=== PATIENT | female | born 1940 | race Caucasian/White ===

== ENCOUNTER 2017-03-25 13:06 | Emergency (ER) | payer OTHER ==
[~2017-03-25] VITALS: Ht 152.4 cm; Wt 66.7 kg
[~2017-03-25 13:06] MED LIST: ALEN70TA39 PO; ATOR40TA PO; CALC500T21 PO; DICY10CA13 PO; GABA100C4 PO; LASI20TA PO; LISI-363 PO; LORTA5 PO; MELO15TA2 PO; OMEP40CA2 PO; PRED20 PO; VITA-8 PO
[2017-03-25 13:14] VITALS: BP 175/84; PULSE 72; RESP 17; TEMP 97.7; O2SAT 97
[2017-03-25] MEDS ORDERED: DICY10CA12 PO (13:58)
[2017-03-25] MEDS ORDERED: OMEP40CA2 PO (13:58)
[2017-03-25] MEDS ORDERED: FURO20TA PO (13:58)
[2017-03-25] MEDS ORDERED: TH C600T4 PO (13:58)
[2017-03-25] MEDS ORDERED: ASCO100016 PO (13:58)
[2017-03-25] MEDS ORDERED: METH8TAB3 PO (13:58)
[2017-03-25] MEDS ORDERED: ATOR40TA16 PO (13:58)
[2017-03-25] MEDS ORDERED: MELO-1 PO (13:58)
[2017-03-25] MEDS ORDERED: IBUP800T23 PO (13:58)
[2017-03-25] MEDS ORDERED: BACL10TA PO (13:58)
[2017-03-25] MEDS ORDERED: KETOROLAC TROMETHAMINE 60 MG/2 ML (IM) VIAL IM ONE (14:15)
--- NOTE | 2017-03-25 14:21 | PD ---
HPI Chief Complaint: Musculoskeletal Complaint Time Seen by Provider: 13:50 Travel History International Travel<30 days: No Contact w/Intl Traveler<30days: No Traveled to known affect area: No History of Present Illness HPI 76-year-old female presents emergency department for evaluation of left low back pain radiating down into the leg. Patient has history of sciatica. She reports symptom onset proximal by 7 days ago. She was seen by her PCP who put her on prednisone and baclofen. She reports she's had little relief with his medicines. She denies fever or chills, incontinence, numbness/weakness/ tingling of the extremity. Patient reports she has a perception for Percocet at the pharmacy which she has not picked up. Pain scale 6/10. No aggravating or alleviating factors. PFSH Past Medical History Arthritis: Yes (OSTEO/LOWER BACK/ HIPS) Asthma: No Autoimmune Disease: No Blood Disorders: No Anxiety: No Depression: No Heart Rhythm Problems: No Cancer: No Cardiovascular Problems: No High Cholesterol: Yes Chest Pain: No Congestive Heart Failure: No COPD: No Cerebrovascular Accident: No Diabetes: No Diminished Hearing: No Endocrine: No GERD: Yes Glaucoma: No Genitourinary: No Headaches: Yes (OCCASSIONAL) Hepatitis: No Hiatal Hernia: No Hypertension: Yes Immune Disorder: No Kidney Stones: No Musculoskeletal: Yes (OSTEOPOROSIS--TAKES MEDS) Neurologic: No Psychiatric: No Reproductive: No Respiratory: No Immunizations Current: Yes Migraines: No Myocardial Infarction: No Renal Failure: No Seizures: No Sickle Cell Disease: No Sleep Apnea: No Thyroid Disease: No Ulcer: No Tetanus Vaccination: < 5 Years Influenza Vaccination: Yes ?: Not Menopausal: Yes Past Surgical History Abdominal Surgery: No AICD: No Appendectomy: No Arteriovenous Shunt: No Body Medical Devices: HARDWARE IN RL ARM Cardiac Surgery: No Cholecystectomy: No Ear Surgery: No Endocrine Surgery: No Eye Surgery: No Genitourinary Surgery: No Gynecologic Surgery: No Insulin Pump: No Joint Replacement: Yes (R HIP 08/21/13) Oral Surgery: No Pacemaker: No Thoracic Surgery: No Other Surgery: Yes Social History Alcohol Use: Yes (OCCAS) Tobacco Use: No Substance Use: No Allergies-Medications (Allergen,Severity, Reaction): Coded Allergies: codeine (Unverified Adverse Reaction, Severe, NAUSEA, 03/25/17) penicillin G (Unverified Adverse Reaction, Severe, HIVES, 03/25/17) Reported Meds & Prescriptions Reported Meds & Active Scripts Active Reported Dicyclomine (Dicyclomine HCl) 10 Mg Cap 10 Mg PO BID Atorvastatin (Atorvastatin Calcium) 40 Mg Tab 40 Mg PO HS Furosemide 20 Mg Tab 20 Mg PO DAILY Vitamin C (Ascorbic Acid) 1,000 Mg Tablet.er 1 Tab PO DAILY Calcium 600 mg Plus Vit D Tab (Calc/D3/Mag/Zn/Makayla/Kike/Broadbent) 1 Each Tablet 2 Tab PO DAILY Ibuprofen 800 Mg Tab 800 Mg PO BID Omeprazole 40 Mg Cap 40 Mg PO DAILY Baclofen 10 Mg Tab 10 Mg PO TID Meloxicam 15 Mg Tab 15 Mg PO DAILY Methylprednisolone 8 Mg Tab 4 Mg PO DIRECTED Review of Systems Except as stated in HPI: all other systems reviewed are Neg Physical Exam Narrative GENERAL: Well-nourished, well-developed patient. SKIN: Focused skin assessment warm/dry. HEAD: Normocephalic. EYES: No scleral icterus. No injection or drainage. NECK: Supple, trachea midline. No JVD or lymphadenopathy. CARDIOVASCULAR: Regular rate and rhythm without murmurs, gallops, or rubs. RESPIRATORY: Breath sounds equal bilaterally. No accessory muscle use. GASTROINTESTINAL: Abdomen soft, non-tender, nondistended. MUSCULOSKELETAL: No cyanosis, or edema. BACK: Nontender without obvious deformity. No CVA tenderness. TTP left SI joint. Negative straight leg raise NEUROLOGICAL: Awake and alert. Cranial nerves II through XII intact. Motor and sensory grossly within normal limits. Five out of 5 muscle strength in all muscle groups. Normal speech. Dorsiflex and plantarflex intact. Data Data Last Documented VS Vital Signs Date Time Temp Pulse Resp B/P Pulse Ox O2 Delivery O2 Flow Rate FiO2 03/25/17 13:40 03/25/17 13:14 97.7 72 17 97 Orders Ketorolac Inj (Toradol Inj) (03/25/17 14:15) [facility] Medical Decision Making Medical Screen Exam Complete: Yes Emergency Medical Condition: Yes Differential Diagnosis Sciatica, lumbar strain, herniated disc Narrative Course 76-year-old female with history of sciatica presents emergency department for evaluation of left low back pain radiating down into the leg 7 days. Her symptoms are unrelieved by prednisone and baclofen. Patient has a prescription for Percocet at the pharmacy which she has not picked up yet. She is requesting a shot for pain control now. Patient's physical exam is reassuring. She is a normal neurologic exam. No CVA tenderness. Patient be given a shot shot of Toradol and instructed to pick and shovel man the Percocet at the pharmacy and take as needed for pain. She verbalizes understanding and agrees to plan Diagnosis Primary Impression: Sciatica Qualified Code: M54.32 - Sciatica of left side Referrals: Primary Care Physician Additional Instructions: Take medications as prescribed. An appointment for follow-up with her doctor. Return to emergency department if he developed new or worsening symptoms. Disposition: 01 DISCHARGE HOME Condition: Stable [place] Mar 25, 2017 14:21
== END 2017-03-25 14:58 | disposition home or self-care (01) ==
LOC: PHED 13:06 → PHEFT 14:58
DX: M54.42 Lumbago with sciatica, left side (principal); I10 Essential (primary) hypertension
CPT/HCPCS: 96372; 99284; J1885

== ENCOUNTER 2018-03-22 18:56 | Inpatient (IN) ==
[2018-03-22] MEDS ORDERED: Sod Chloride 0.9% Inj 1,000 ML IV.SIG ONE (19:25)
[2018-03-22] MEDS ORDERED: HYDROmorphone PF Inj 2 MG/ML Vial IV.PUSH ONE (19:41)
--- NOTE | 2018-03-22 19:50 | ED ---
HPI General Chief Complaint: Fall Stated Complaint: Fall Time Seen by Provider: 03/22/18 19:10 Source: patient, family, EMS and RN notes reviewed Mode of arrival: EMS Limitations: no limitations History of Present Illness HPI Narrative: The patient is a 77-year-old female that was brought in by EMS after a mechanical fall at home. She landed on her right side and has a deformity on her right wrist. She is also complaining of right hip pain where she had a hip replacement in the past. As per EMS report she was laying on the floor when they arrived and they stood her up and she had a brief syncopal episode with a blood pressure in the 80s. On arrival here her blood pressure was 139/66. She is alert and oriented. Denied head trauma or LOC. She is not on anticoagulation. MD complaint: fall Onset (ago): minute(s) (30) Fall from: standing Fall witnessed: no Place fall occurred: home Loss of consciousness: none Symptoms prior to fall: none Context: tripped/slipped Location of injury: other (Right wrist and right hip) Severity: severe Severity scale (1-10): 10 Quality: stabbing Associated symptoms (after fall): other (Tingling sensation on fingers) Related Data Home Medications Medication Instructions Recorded Confirmed ascorbic acid (vitamin C) [Vitamin 1,000 mg PO DAILY 03/22/18 03/22/18 C] aspirin 81 mg PO DAILY 03/22/18 03/22/18 atorvastatin 40 mg PO DAILY 03/22/18 03/22/18 calcium carbonate-vitamin D3 2 tab PO DAILY 03/22/18 03/22/18 [Calcium 600 + D(3)] cholecalciferol (vitamin D3) 1,000 unit PO DAILY 03/22/18 03/22/18 [Vitamin D3] dicyclomine 10 mg PO BID 03/22/18 03/22/18 furosemide 20 mg PO DAILY 03/22/18 03/22/18 ibuprofen 800 mg PO TID PRN 03/22/18 03/22/18 losartan 50 mg PO DAILY 03/22/18 03/22/18 omeprazole 40 mg PO DAILY 03/22/18 03/22/18 Allergies Allergy/AdvReac Type Severity Reaction Status Date / Time codeine AdvReac Severe NAUSEA Verified 03/22/18 19:25 penicillin G AdvReac Severe HIVES Verified 03/22/18 19:25 Review of Systems ROS: all other systems reviewed are negative PMFSH History History Provided By: Patient, Family Member and Wire Repairer / EMT Medical History Medical History Hypercholesteremia (Acute) Hypertension (Acute) Surgical History Surgical History History of total right knee replacement (Acute) Social History Social History Substance History: No History of Abuse Second Hand Smoke Exposure: No Smoking Status: Never smoker How Often Do You Have a Drink Containing Alcohol: Monthly or less Exam Narrative Exam Narrative: GENERAL: Alert and oriented in no distress SKIN: Focused skin assessment warm/dry. HEAD: Atraumatic. Normocephalic. EYES: Pupils equal and round. No scleral icterus. No injection or drainage. ENT: No nasal bleeding or discharge. Mucous membranes pink and moist. NECK: Trachea midline. No JVD. CARDIOVASCULAR: Regular rate and rhythm. No murmur appreciated. RESPIRATORY: No accessory muscle use. Clear to auscultation. Breath sounds equal bilaterally. GASTROINTESTINAL: Abdomen soft, non-tender, nondistended. Hepatic and splenic margins not palpable. MUSCULOSKELETAL: obvious deformities of right wrist with tenting. Patient also has a small cut that is not associated with a fracture but is very proximal and its from bracelet she was wearing. Sensation is present on fingers. She is able to move all of them on the affected extremity. Capillary refill normal.. No clubbing. No cyanosis. NEUROLOGICAL: Awake and alert. No obvious cranial nerve deficits. Motor grossly within normal limits. Normal speech. PSYCHIATRIC: Appropriate mood and affect; insight and judgment normal. Procedures Orthopedic Fracture Reduction Fracture #1: Time Out Performed: Yes Side: right Fracture Reduction Location: radius and ulna Analgesia: hematoma block Technique: finger traps Post Reduction X-rays Demonstrate: acceptable reduction Post-Reduction Neuro Exam: intact Post-Reduction Vascular Exam: intact Splint Applied: Yes Patient Tolerated Procedure: well Course Reevaluation(s) Reevaluation #2: Complete resolution of numbness and tingling of the affected hand. Improved alignment of her fracture after reduction with fingertrap. Fracture was splinted with sugar tong and repeat film was obtained. We contacted Dr. Rosado hand surgery who recommended reduction and admission for OR in the a.m. as well as a CT of the affected extremity. Anesthesia and tingling in have resolved after reduction. She feels much better. Adequate pain management. Not nauseous anymore. The patient also had a 0.5 cm laceration on the ulnar side of her hand not involved with the fracture and was secondary to her bracelet that was removed. We cleaned up the wound with alcohol placed Xeroform and gauze. Time: 22:33 Initial Documented Vital Signs Temperature 97.5 F L 03/22/18 19:20 Pulse Rate 79 03/22/18 19:20 Respiratory Rate 16 03/22/18 19:20 Blood Pressure 139/66 03/22/18 19:20 Pulse Oximetry 99 03/22/18 19:20 Last Documented Vital Signs Temperature 97.5 F L 03/22/18 19:20 Pulse Rate 84 03/22/18 22:00 Respiratory Rate 16 03/22/18 22:00 Blood Pressure 107/60 03/22/18 22:00 Pulse Oximetry 98 03/22/18 22:00 Medical Decision Making MDM Narrative Medical decision making narrative: Patient with fracture displacement of the right wrist and possible carpal bone dislocation. Findings discussed with hand surgery sale professional digital marketing who recommended reduction in the ED and admission for OR in the a.m. We will also obtain a CT of the affected extremity per request of orthopedic surgeon. Market improvement of misalignment as well as neurologic symptoms of the affected extremity. No compartment syndrome noted at this time. Sensation intact. Capillary refill intact. Fingers without any motion deficit. Medical Screen Exam Complete: Yes Emergency Medical Condition: Yes Lab Data Lab results reviewed: Yes I reviewed the patient's lab results. Result diagrams: 03/22/18 19:40 03/22/18 19:40 Lab Results 03/22/18 03/22/18 03/22/18 Range/Units 19:40 19:40 19:40 WBC 10.9 (4.0-11.0) th/mm3 RBC 4.24 (4.00-5.30) mil/mm3 Hgb 13.0 (11.6-15.3) gm/dL Hct 38.5 (35.0-46.0) % MCV 90.8 (80.0-100.0) fL MCH 30.6 (27.0-34.0) pg MCHC 33.8 (32.0-36.0) % RDW 13.7 (11.6-17.2) % Plt Count 379 (150-450) th/mm3 MPV 7.9 (7.0-11.0) fL Neut % (Auto) 71.7 H (16.0-70.0) % Lymph % (Auto) 18.7 (9.0-44.0) % [place] % (Auto) 7.3 (0.0-8.0) % Eos % (Auto) 1.4 (0.0-4.0) % Baso % (Auto) 0.9 (0.0-2.0) % Neut # (Auto) 7.8 H (1.8-7.7) th/mm3 Lymph # (Auto) 2.0 (1.0-4.8) th/mm3 [place] # (Auto) 0.8 (0.0-0.9) th/mm3 Eos # (Auto) 0.2 (0.0-0.4) th/mm3 Baso # (Auto) 0.1 (0.0-0.2) th/mm3 WBC Differential . Differential Comment Auto diff final PT 10.1 (9.8-11.6) sec INR 1.0 Ratio APTT 21.7 L (24.3-30.1) sec Sodium 134 L (136-145) meq/L Potassium 3.7 (3.5-5.1) meq/L Chloride 100 (98-107) meq/L Carbon Dioxide 26.9 (21.0-32.0) meq/L Anion Gap 7 (5-15) meq/L BUN 14 (7-18) mg/dL Creatinine 0.85 (0.50-1.00) mg/dL Estimated GFR 65 L (>89) mL/min Random Glucose 119 H (74-106) mg/dL Calcium 8.8 (8.5-10.1) mg/dL Troponin I Less than 0.02 L (0.02-0.05) ng/mL Imaging Data Attestation: I personally reviewed and interpreted this imaging study as follows : My impression: Fracture of the distal radial metaphysis with intra-articular extension fragment is displaced dorsally completely. Radiologist's impression: Head CT 03/22/18 19:22 CONCLUSION: 1. Negative exam. No change from prior. . Hip X-Ray 03/22/18 19:22 CONCLUSION: No evidence of recent bony injury. Wrist X-Ray 03/22/18 19:22 CONCLUSION: 1. Comminuted fracture of the distal radial metadiaphysis with dorsal displacement of the distal fragment. I suspect that there is a component of intra-articular extension as well. 2. There appears at the pisiform may be dislocated off the ventral carpal row is well Chest X-Ray 03/22/18 19:25 CONCLUSION: No acute cardiopulmonary process. Wrist X-Ray 03/22/18 21:47 CONCLUSION: Partial reduction of the previously seen comminuted distal radial metaphyseal fracture. Distal fragment is offset approximately one half bone thickness dorsally and was completely dorsally displaced previously. Discharge Plan Discharge Disposition Patient Disposition: 30 Still Patient Discharge Condition Condition: Stable Discharge Details Diagnosis: Fracture of wrist, Syncope Physicians Team ED Provider: Ivan Lamb Primary Care Provider: Jason Apodaca Attending Provider: Ronit Reyna Discharge Interventions Interventions: Vital Signs Last Done: 03/22/18 22:00 Status ED Status: Admitted Patient
[2018-03-22 20:05] LABS: Baso # (Auto) 0.1 th/mm3 (0.0-0.2); Baso % (Auto) 0.9 % (0.0-2.0); Eos # (Auto) 0.2 th/mm3 (0.0-0.4); Eos % (Auto) 1.4 % (0.0-4.0); Hematocrit 38.5 % (35.0-46.0); Lymph % (Auto) 18.7 % (9.0-44.0); Mean Corpuscular HGB Conc 33.8 % (32.0-36.0); Mean Corpuscular Hemoglobin 30.6 pg (27.0-34.0); Mean Corpuscular Volume 90.8 fL (80.0-100.0); Mean Platelet Volume 7.9 fL (7.0-11.0); Mono # (Auto) 0.8 th/mm3 (0.0-0.9); Mono % (Auto) 7.3 % (0.0-8.0); Neut # (Auto) 7.8 th/mm3 (1.8-7.7); Neut % (Auto) 71.7 % (16.0-70.0); Platelet Count 379 th/mm3 (150-450); Red Blood Count 4.24 mil/mm3 (4.00-5.30); Red Cell Distribution Width 13.7 % (11.6-17.2); White Blood Count 10.9 th/mm3 (4.0-11.0)
[2018-03-22 20:11] LABS: Activated Partial Thrombo Time 21.7 sec (24.3-30.1); Prothrombin Time 10.1 sec (9.8-11.6)
--- NOTE | 2018-03-22 20:18 | CT ---
EXAM DATE: 03/22/2018 8:13 PM EDT AGE/SEX: 77 years / Female INDICATIONS: Fall today CLINICAL DATA: This is the patient's initial encounter. Patient reports that signs and symptoms have been present for 1 day and indicates a pain score of 10/10. MEDICAL/SURGICAL HISTORY: Hypertension. . Orthopedic RADIATION DOSE: 56.77 CTDI (mGy) COMPARISON: [facility], CT BRAIN W/O CONTRAST, 02/22/2013. . TECHNIQUE: CT of the head without contrast. Using automated exposure control and adjustment of the mA and/or kV according to patient size, radiation dose was kept as low as reasonably achievable to ob tain optimal diagnostic quality images. DICOM format image data is available electronically for revi ew and comparison. FINDINGS: Cerebrum: The ventricles are normal for age. No evidence of midline shift, mass lesion, hemorrhage or acute infarction. No extraaxial fluid collections are seen. Posterior Fossa: The cerebellum and brainstem are intact. The 4th ventricle is midline. The cerebe llopontine angle is unremarkable. Extracranial: The visualized portion of the orbits is intact. Skull: The calvaria is intact. No evidence of skull fracture. CONCLUSION: 1. Negative exam. No change from prior. . Electronically signed by: Francesco Estrada MD 03/22/2018 8:16 PM EDT
--- NOTE | 2018-03-22 20:25 | XR ---
EXAM DATE: 03/22/2018 8:11 PM EDT AGE/SEX: 77 years / Female INDICATIONS: Right hip pain; fall. CLINICAL DATA: This is the patient's initial encounter. Patient reports that signs and symptoms have been present for 1 day and indicates a pain score of 5/10. MEDICAL/SURGICAL HISTORY: None. . Right total hip replacement. COMPARISON: [facility], HIP RIGHT (AP&LAT 2/3VWS) WO AP PELVIS, 12/06/2014. . FINDINGS: Right total hip arthroplasty. Both the femoral and acetabular components are appropriately positioned without fracture or dislocation. Some degenerative osteoarthritic changes in the [place] left hip. Mi ld sclerosis around the SI joints may represent symmetric sacroiliitis. Calcification projecting over the sacrum could represent a degenerated fibroid. 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 Electronically signed by: Francesco Estrada MD 03/22/2018 8:23 PM EDT
[2018-03-22] MEDS ORDERED: Lidocaine PF 1% Inj 30 ML Vial INFILTRATN ONE (20:27)
--- NOTE | 2018-03-22 20:32 | XR ---
EXAM DATE: 03/22/2018 8:17 PM EDT AGE/SEX: 77 years / Female INDICATIONS: Chest discomfort; fall. CLINICAL DATA: This is the patient's initial encounter. Patient reports that signs and symptoms have been present for 1 day and indicates a pain score of 0/10. MEDICAL/SURGICAL HISTORY: Hypertension. None. COMPARISON: [facility], CHEST SINGLE AP, 03/09/2012. . FINDINGS: A single AP view of the chest demonstrates the lungs to be symmetrically aerated without evidence of mass, infiltrate or effusion. The cardiomediastinal contours are unremarkable. Osseous structures a re intact. CONCLUSION: No acute cardiopulmonary process. Electronically signed by: Francesco Estrada MD 03/22/2018 8:31 PM EDT
--- NOTE | 2018-03-22 20:32 | XR ---
EXAM DATE: 03/22/2018 8:13 PM EDT AGE/SEX: 77 years / Female INDICATIONS: Right wrist pain; fall. CLINICAL DATA: This is the patient's initial encounter. Patient reports that signs and symptoms have been present for 1 day and indicates a pain score of 10/10. MEDICAL/SURGICAL HISTORY: None. None. COMPARISON: No prior exams available for comparison. FINDINGS: Displaced fracture through the distal radial metadiaphysis with dorsal displacement of the distal fragment. I suspect there is some component of an intra-articular extension as well. In addit ion, it appears that the pisiform is dislocated off of the ventral carpal row. CONCLUSION: 1. Comminuted fracture of the distal radial metadiaphysis with dorsal displacement of the distal fra gment. I suspect that there is a component of intra-articular extension as well. 2. There appears at the pisiform may be dislocated off the ventral carpal row is well Electronically signed by: Francesco Estrada MD 03/22/2018 8:31 PM EDT
[2018-03-22 21:03] LABS: Anion Gap 7 meq/L (5-15); Blood Urea Nitrogen 14 mg/dL (7-18); Calcium 8.8 mg/dL (8.5-10.1); Carbon Dioxide 26.9 meq/L (21.0-32.0); Chloride 100 meq/L (98-107); Glomerular Filtration Rate 65 mL/min (>89); Glucose,Random 119 mg/dL (74-106); Potassium 3.7 meq/L (3.5-5.1); Sodium 134 meq/L (136-145)
[2018-03-22] MEDS ORDERED: Bisacodyl 10 MG Supp RECTAL PRN (22:19)
[2018-03-22] MEDS ORDERED: Acetaminophen 325 MG Tablet PO PRN (22:19)
[2018-03-22] MEDS ORDERED: Temazepam 15 MG Capsule PO PRN (22:19)
--- NOTE | 2018-03-22 22:20 | XR ---
EXAM DATE: 03/22/2018 10:13 PM EDT AGE/SEX: 77 years / Female INDICATIONS: Right wrist post reduction. CLINICAL DATA: This is the patient's subsequent encounter. Patient reports that signs and symptoms h ave been present for 1 day and indicates a pain score of 5/10. MEDICAL/SURGICAL HISTORY: None. None. COMPARISON: [facility] [place], WRIST COMPLETE RIGHT MIN 3V, 03/22/2018. . FINDINGS: Fracture through the distal radial metaphysis with intra-articular extension and dorsal displacement of the distal fragment. Ulnar styloid fracture is present as well. When compared to the prior, the ma in radial fracture fragment is partially reduced CONCLUSION: Partial reduction of the previously seen comminuted distal radial metaphyseal fracture. Distal fragme nt is offset approximately one half bone thickness dorsally and was completely dorsally displaced pre viously. Electronically signed by: Francesco Estrada MD 03/22/2018 10:19 PM EDT
--- NOTE | 2018-03-22 22:22 | P.HPIM ---
History of Present Illness Primary Care Physician: Jason Apodaca MD History of Present Illness: This is a 77-year-old female with a PMH of HTN and Hyperlipidemia who is brought to the ER by EMS after a fall w/ right wrist pain and syncopal event. Pt states she was cooking supper and got her flip flop stuck on the tile floor causing her to fall and land on her right wrist. Severe right wrist pain, 10/10 , non-radiating. Upon EMS arrival, pt had syncopal event after they stood her up. BP 80's systolic at that time. Reports no dizziness prior to fall. No c/ o chest pain. On arrival, BP 139/66, HR 79, O2 sat 99% on RA, Afebrile. CBC unremarkable. INR 1.0. Chemistry essentially unremarkable except for dehydration, GFR 65. Troponin negative. CT Head with no acute findings. CXR w / no acute findings. Hip X-ray negative. Wrist X-ray comminuted fracture of distal radial metadiaphysis, s/p reduction in ER. Dr. Rosado consulted by ER physician, plan is for surgical intervention in am. - Diagnosis (1) Wrist fracture, right (2) Syncope (3) Dehydration Review of Systems PAST FAMILY HISTORY: Reviewed. No h/o DM or CAD All other systems reviewed negative except as stated in HPI PMFSH - History History Provided By: Patient, Family Member, Lap Regulator / EMT - Medical History Medical History: Medical History (Last Reviewed 03/22/18 @ 19:50 by Ivan Lamb DO) Hypercholesteremia Hypertension - Surgical History Surgical History: Surgical History (Last Reviewed 03/22/18 @ 19:50 by Ivan Lamb DO) History of total right knee replacement - Family History Family History: Family History (Last Updated 03/22/18 @ 23:29 by Ronit Reyna MD) Other Family history non-contributory - Tobacco History Second Hand Smoke Exposure: No Smoking Status: Never smoker - Alcohol History How Often Do You Have a Drink Containing Alcohol: Monthly or less - Substance Use History Substance History: No History of Abuse - Immunization History Tetanus Immunization: <5 Years Hx Influenza Vaccine This Season: Yes Medications and Allergies Allergies Allergy/AdvReac Type Severity Reaction Status Date / Time codeine AdvReac Severe NAUSEA Verified 08/16/18 19:25 penicillin G AdvReac Severe HIVES Verified 03/22/18 19:25 Home Medications Medication Instructions Recorded Confirmed Type ascorbic acid (vitamin C) [Vitamin 1,000 mg PO DAILY 03/22/18 03/22/18 History C] aspirin 81 mg PO DAILY 03/22/18 03/22/18 History atorvastatin 40 mg PO DAILY 03/22/18 03/22/18 History calcium carbonate-vitamin D3 2 tab PO DAILY 03/22/18 03/22/18 History [Calcium 600 + D(3)] cholecalciferol (vitamin D3) 1,000 unit PO DAILY 03/22/18 03/22/18 History [Vitamin D3] dicyclomine 10 mg PO BID 03/22/18 03/22/18 History furosemide 20 mg PO DAILY 03/22/18 03/22/18 History ibuprofen 800 mg PO TID PRN 03/22/18 03/22/18 History losartan 50 mg PO DAILY 03/22/18 03/22/18 History omeprazole 40 mg PO DAILY 03/22/18 03/22/18 History Exam Vital signs: Vital Signs 03/22/18 19:20 03/22/18 22:00 Temperature 97.5 F L Pulse Rate 79 84 Respiratory Rate 16 16 Blood Pressure 139/66 107/60 Pulse Oximetry 99 98 Intake & Output 03/22/18 03/22/18 03/23/18 06:59 18:59 06:59 Intake Total 500 / 500 Balance 500 / 500 Weight 64.41 kg Intake: IV 500 / 500 NS Inj 1,000 ML @ Wide Open IV. 500 / 500 SIG BOLUS ONE Rx#:[id number] Narrative: PE: GENERAL: Very pleasant elderly white female in no acute distress. HEENT: PERRLA, EOMI. No scleral icterus or conjunctival pallor. No lid lag or facial droop. CARDIOVASCULAR: Regular rate and rhythm. No obvious murmurs to auscultation. No chest tenderness to palpation. RESPIRATORY: No obvious rhonchi or wheezing. Clear to auscultation. Breath sounds equal bilaterally. GASTROINTESTINAL: Abdomen soft, non-tender, nondistended. BS normal. MUSCULOSKELETAL: Extremities without clubbing, cyanosis, or edema. No obvious deformities. RUE s/p splint, decreased ROM due to injury. NEUROLOGICAL: Awake, alert and oriented x4. No focal neurologic deficits. Moving both upper and lower extremities spontaneously. Results - Labs CBC & Chem 7: 03/22/18 19:40 03/22/18 19:40 Labs: Short CBC 03/22/18 Range/Units 19:40 WBC 10.9 (4.0-11.0) th/mm3 Hgb 13.0 (11.6-15.3) gm/dL Hct 38.5 (35.0-46.0) % Plt Count 379 (150-450) th/mm3 BMP 03/22/18 19:40 Sodium 134 L Potassium 3.7 Chloride 100 Carbon Dioxide 26.9 BUN 14 Creatinine 0.85 Calcium 8.8 Cardiac Enzymes 03/22/18 Range/Units 19:40 Troponin I Less than 0.02 L (0.02-0.05) ng/mL - Imaging Impressions Head CT 03/22/18 19:22 CONCLUSION: 1. Negative exam. No change from prior. . Hip X-Ray 03/22/18 19:22 CONCLUSION: No evidence of recent bony injury. Wrist X-Ray 03/22/18 19:22 CONCLUSION: 1. Comminuted fracture of the distal radial metadiaphysis with dorsal displacement of the distal fragment. I suspect that there is a component of intra-articular extension as well. 2. There appears at the pisiform may be dislocated off the ventral carpal row is well Chest X-Ray 03/22/18 19:25 CONCLUSION: No acute cardiopulmonary process. Wrist X-Ray 03/22/18 21:47 CONCLUSION: Partial reduction of the previously seen comminuted distal radial metaphyseal fracture. Distal fragment is offset approximately one half bone thickness dorsally and was completely dorsally displaced previously. Caprini VTE Risk Assessment Caprini VTE Risk Assessment: No/Low Risk (score <= 1) Caprini Risk Assessment Model: Point Value = 1 Point Value = 2 Point Value = 3 Point Value = 5 Age 41-60 Minor surgery BMI > 25 kg/m2 Swollen legs Varicose veins or History of unexplained or recurrent spontaneous Oral contraceptives or hormone replacement Sepsis (< 1 month) Serious lung disease, including pneumonia (< 1 month) Abnormal pulmonary function Acute myocardial infarction Congestive heart failure (< 1 month) History of inflammatory bowel disease Medical patient at bed rest Age 61-74 Arthroscopic surgery Major open surgery (> 45 min) Laparoscopic surgery (> 45 min) Malignancy Confined to bed (> 72 hours) Immobilizing plaster cast Central venous access Age >= 75 History of VTE Family history of VTE Factor V Leiden Prothrombin [id number] Lupus anticoagulant Anticardiolipin antibodies Elevated serum homocysteine Heparin-induced thrombocytopenia Other congenital or acquired thrombophilia Stroke (< 1 month) Elective arthroplasty Hip, pelvis, or leg fracture Acute spinal cord injury (< 1 month) Prophylaxis Regimen: Total Risk Factor Score Risk Level Prophylaxis Regimen 0-1 Low Early ambulation 2 Moderate Order ONE of the following: *Sequential Compression Device (SCD) *Heparin 5000 units SQ BID 3-4 Higher Order ONE of the following medications: *Heparin 5000 units SQ TID *Enoxaparin/Lovenox 40 mg SQ daily (WT < 150 kg, CrCl > 30 mL/min) *Enoxaparin/Lovenox 30 mg SQ daily (WT < 150 kg, CrCl > 10-29 mL/min) *Enoxaparin/Lovenox 30 mg SQ BID (WT < 150 kg, CrCl > 30 mL/min) AND/OR *Sequential Compression Device (SCD) 5 or more Highest Order ONE of the following medications: *Heparin 5000 units SQ TID (Preferred with Epidurals) *Enoxaparin/Lovenox 40 mg SQ daily (WT < 150 kg, CrCl > 30 mL/min) *Enoxaparin/Lovenox 30 mg SQ daily (WT < 150 kg, CrCl > 10-29 mL/min) *Enoxaparin/Lovenox 30 mg SQ BID (WT < 150 kg, CrCl > 30 mL/min) AND *Sequential Compression Device (SCD) Assessment and Plan - Assessment (1) Wrist fracture, right Code(s): S62.101A - Fracture of unspecified carpal bone, right wrist, initial encounter for closed fracture Status: Acute (2) Syncope Code(s): R55 - Syncope and collapse Status: Acute (3) Dehydration Code(s): E86.0 - Dehydration Status: Acute - Plan A/P: 1. Right Wrist Fx: s/p mechanical fall, no head trauma or LOC reported. Wrist X-ray w/ comminuted fracture distal radial metadiaphysis with dorsal displacement, images reviewed. S/p reduction in ER. Dr. Rosado consulted, plan is for surgical intervention in am. NPO, IVF, analgesics/antiemetics as needed. Preop labs reviewed. 2. Syncope: Likely vasovagal, BP 80's upon sitting up by EMS, IVF for hydration, initial trop negative, check serial cardiac enzymes to eval for ischemia. CT Head w/ no acute findings, CXR negative. 3. Dehydration: GFR 65, IVF for hydration, monitor I/O, check U/a, repeat labs in am. 4. DVT Prophylaxis: Anticoagulation postop 5. Social work for DC planning as needed. 6. Case discussed at length with the ER physician, lab/record/imaging reviewed by me. (2) Syncope Qualifiers: Syncope type: vasovagal syncope Qualified Code(s): R55 - Syncope and collapse
[2018-03-22] MEDS ORDERED: Chlorhexidine Gluconate 2% 1 Pack (2 Cloths) TOPICAL SCH (23:45)
[2018-03-22] MEDS ORDERED: Metoprolol Tartrate 25 MG Tablet PO SCH (23:45)
[2018-03-22] MEDS ORDERED: Sodium Chlor 0.9% Inj 500 ML IV.SIG SCH (23:45)
--- NOTE | 2018-03-22 23:55 | CT ---
EXAM DATE: 03/22/2018 11:29 PM EDT AGE/SEX: 77 years / Female INDICATIONS: Fell and landed on wrist. CLINICAL DATA: This is the patient's initial encounter. Patient reports that signs and symptoms have been present for 1 day and indicates a pain score of 6/10. MEDICAL/SURGICAL HISTORY: Hypertension. None. RADIATION DOSE: 16.56 CTDI (mGy) COMPARISON: [facility], W[facility]ST LTD RIGHT AP&LAT 2V, 03/22/2018. [facility], WRIST COMPLETE RIGHT MIN 3V, 03/22. . TECHNIQUE: Multiple contiguous axial images were acquired using a multirow detector CT scanner witho ut contrast. Multiplanar reconstruction was performed in the sagittal and coronal planes. Using aut omated exposure control and adjustment of the mA and/or kV according to patient size, radiation dose was kept as low as reasonably achievable to obtain optimal diagnostic quality images. DICOM format i mage data is available electronically for review and comparison. FINDINGS: Bones: There is fracturing of the distal radius with dorsal displacement and angulation of the dista l fragment. There is fracturing at the base of the ulnar styloid. The ulnar styloid appears laterally displaced. Joints: No significant arthropathy or bony hypertrophy is seen. Soft Tissues: Grossly unremarkable for a non-contrast study. Other: No foreign bodies seen. CONCLUSION: 1. Distal radial fracture with dorsal displacement and angulation of the distal fragment. 2. Fracture at the base of the ulnar styloid. Electronically signed by: Erick Thapa MD 03/22/2018 11:53 PM EDT
[2018-03-23] MEDS: Sod Chloride 0.9% Inj 1,000 ML IV.CONT SCH ×3 (05:04→20:27)
[2018-03-23] MEDS: Morphine Inj 4 MG/ML Vial IV.PUSH PRN ×2 (05:13→11:51)
[2018-03-23 05:24] LABS: Bilirubin,Urine Negative (Negative); Clarity,Urine Clear (Clear); Color,Urine Yellow (Yellw/Straw); Glucose,Urine (UA) Negative (Negative); Leukocyte Esterase,Urine Trace (Negative); Mucus,Urine Few /lpf (Occasional); Nitrite,Urine Negative (Negative); Specific Gravity,Urine 1.015 (1.002-1.035)
[2018-03-23 06:19] LABS: Baso % (Auto) 0.3 % (0.0-2.0); Eos % (Auto) 0.1 % (0.0-4.0); Hemoglobin 11.6 gm/dL (11.6-15.3); Lymph # (Auto) 1.3 th/mm3 (1.0-4.8); Lymph % (Auto) 10.9 % (9.0-44.0); Mean Corpuscular HGB Conc 33.3 % (32.0-36.0); Mean Corpuscular Hemoglobin 30.2 pg (27.0-34.0); Mean Corpuscular Volume 90.8 fL (80.0-100.0); Mean Platelet Volume 7.6 fL (7.0-11.0); Mono # (Auto) 0.6 th/mm3 (0.0-0.9); Neut # (Auto) 10.2 th/mm3 (1.8-7.7); Neut % (Auto) 83.7 % (16.0-70.0); Platelet Count 326 th/mm3 (150-450); Red Blood Count 3.85 mil/mm3 (4.00-5.30); Red Cell Distribution Width 13.6 % (11.6-17.2); White Blood Count 12.2 th/mm3 (4.0-11.0)
[2018-03-23 06:41] LABS: Anion Gap 8 meq/L (5-15); Aspartate Aminotransferase 25 U/L (15-37); Blood Urea Nitrogen 14 mg/dL (7-18); Calcium 8.3 mg/dL (8.5-10.1); Carbon Dioxide 24.4 meq/L (21.0-32.0); Chloride 103 meq/L (98-107); Glomerular Filtration Rate 86 mL/min (>89); Glucose,Random 104 mg/dL (74-106); Potassium 4.2 meq/L (3.5-5.1); Sodium 135 meq/L (136-145)
[2018-03-23 06:42] LABS: Alanine Aminotransferase 21 U/L (10-53)
[2018-03-23 06:45] LABS: Alkaline Phosphatase 86 U/L (45-117); Total Protein 6.5 g/dL (6.4-8.2)
[2018-03-23] MEDS ORDERED: Phenylephrine/NS 1000 MCG/10ML Syringe IV.PUSH ONE (12:00)
[2018-03-23] MEDS ORDERED: Neostigmine Inj 5 MG/5 ML Syringe IV.PUSH ONE (12:00)
[2018-03-23] MEDS ORDERED: Glycopyrrolate Inj 1 MG/5 ML Syringe IV.PUSH ONE (12:00)
[2018-03-23] MEDS ORDERED: Lidocaine PF 1% Inj 5 ML Syringe INFILTRATN ONE (12:00)
[2018-03-23] MEDS: Senna/Docusate Sodium 8.6/50 MG Tablet PO SCH (12:14)
--- NOTE | 2018-03-23 12:46 | ECG ---
Date Performed: 03/22/2018 Time Performed: 21:39:21 PTAGE: 77 years EKG: Sinus rhythm LVH BY LIMB LEAD VOLTAGE, NEW COMPARED TO THE PRIOR TRACING ABNORMAL ECG PREVIOUS TRACING : 02/01/2009 13.27 DOCTOR: Abdirashid Thomas Interpretating Date/Time 03/23/2018 12:44:35
[2018-03-23] MEDS ORDERED: Bupivacaine PF 0.5% Inj 30 ML Vial ONE (15:54)
[2018-03-23] MEDS ORDERED: Lidocaine 2% Inj 50 ML Vial ONE (15:54)
[2018-03-23] MEDS ORDERED: Neomycin/Polymyxin G.U. Irrigant 1 ML Ampul ONE (15:58)
--- NOTE | 2018-03-23 16:19 | CT ---
EXAM DATE: 03/23/2018 4:01 PM EDT AGE/SEX: 77 years / Female INDICATIONS: Evaluate fracture. CLINICAL DATA: This is the patient's initial encounter. Patient reports that signs and symptoms have been present for 1 day and indicates a pain score of 6/10. MEDICAL/SURGICAL HISTORY: Hypertension. None. RADIATION DOSE: 15.62 CTDI (mGy) ; Patient motion [place] [facility] [place]/22/2018. . TECHNIQUE: Volumetric scanning was performed using a multi-row detector CT scanner during bolus infu ramesh of ml nonionic water-soluble contrast as a . The data was post processed with a variety of visu alization algorithms including full volume maximum intensity projection, multi-planar sliding thin sl ab reformation, curved planar reformation, and surface rendering techniques. Using automated exposur e control and adjustment of the mA and/or kV according to patient size, radiation dose was kept as lo w as reasonably achievable to obtain optimal diagnostic quality images. DICOM format image data is a vailable electronically for review and comparison. FINDINGS: Special reconstruction images confirm a comminuted distal radius fracture with dorsal displacement an d anterior angular deformity. No dislocation. Also ulnar styloid fracture. CONCLUSION: 1. Slightly comminuted, posteriorly displaced and slightly angulated distal radius fracture confirme d on 3-D reconstruction images. Electronically signed by: Art Zhao MD 03/23/2018 4:17 PM EDT
[2018-03-23] MEDS ORDERED: Clindamycin Inj 600 MG/4 ML Vial ONE (16:34)
[2018-03-23] MEDS ORDERED: Sodium Chlor 0.9% Inj 50 ML ONE (16:36)
[2018-03-23] MEDS ORDERED: fentaNYL Citrate Inj 100 MCG/2 ML Ampul ONE ×2 (19:01→19:44)
--- NOTE | 2018-03-23 19:11 | XR ---
EXAM DATE: 03/23/2018 7:02 PM EDT AGE/SEX: 77 years / Female INDICATIONS: Status post open rigid internal fixation of a right wrist fracture. CLINICAL DATA: This is the patient's subsequent encounter. Patient reports that signs and symptoms h ave been present for 2 days and indicates a pain score of Nonresponsive. MEDICAL/SURGICAL HISTORY: None. None. COMPARISON: [facility] [place], W[facility] LTD RIGHT AP&LAT 2V, 03/22/2018. . FINDINGS: Multiple AP and lateral views of the wrist were obtained and demonstrate interval reduction of the di stal radial fracture and placement of screw plate fixation device transfixing the fracture. The fract ure fragments are in anatomic alignment. The small ulnar styloid fracture is again noted which is min imally displaced 1 to 2 mm. CONCLUSION: Status post open rigid internal fixation. Electronically signed by: Ubaldo Paul MD 03/23/2018 7:10 PM EDT
--- NOTE | 2018-03-23 20:10 | P.PNOP ---
Physical Exam Vital signs: Vital Signs 03/22/18 22:00 03/22/18 23:00 03/23/18 00:00 Temperature 97.8 F Pulse Rate 84 96 H 85 Respiratory Rate 16 20 18 Blood Pressure 107/60 124/61 Pulse Oximetry 98 92 L 03/23/18 04:00 03/23/18 08:00 03/23/18 12:00 Temperature 98.4 F 97.5 F L 97.8 F Pulse Rate 96 H 85 80 Respiratory Rate 20 14 16 Blood Pressure 137/68 137/64 152/69 H Pulse Oximetry 97 94 L 91 L Intake & Output 03/23/18 03/23/18 03/24/18 06:59 18:59 06:59 Intake Total 1000 / 1000 2600 / 2600 Output Total 30 / 30 Balance 1000 / 1000 2570 / 2570 Weight 64.41 kg Intake: IV 1000 / 1000 1000 / 1000 NS Inj 1,000 ML @ 100 mls/hr IV 1000 / 1000 .CONT .Q10H SYLVESTER Rx#:[id number] NS Inj 1,000 ML @ Wide Open IV. 1000 / 1000 SIG BOLUS ONE Rx#:[id number] Oral 0 / 0 Anesthesia Amount 1600 / 1600 Output: Estimated Blood Loss 30 / 30 Other: # Voids 1 1 Date of Last Bowel Movement 03/22/18 03/22/18 Weight On Admission 64.41 kg Results - Labs CBC & Chem 7: 03/23/18 05:36 03/23/18 05:36 Laboratory Results - last 24 hr 03/22/18 03/22/18 03/23/18 19:40 19:40 00:42 WBC RBC Hgb Hct MCV MCH MCHC RDW Plt Count MPV Neut % (Auto) Lymph % (Auto) [place] % (Auto) Eos % (Auto) Baso % (Auto) Neut # (Auto) Lymph # (Auto) [place] # (Auto) Eos # (Auto) Baso # (Auto) WBC Differential Differential Comment PT 10.1 INR 1.0 APTT 21.7 L Sodium 134 L Potassium 3.7 Chloride 100 Carbon Dioxide 26.9 Anion Gap 7 BUN 14 Creatinine 0.85 Estimated GFR 65 L Random Glucose 119 H Calcium 8.8 Total Bilirubin AST ALT Alkaline Phosphatase Troponin I Less than 0.02 L Less than 0.02 L Total Protein Albumin Urine Color Urine Clarity Urine pH Ur Specific [place] Urine Protein Urine Glucose (UA) Urine Ketones Urine Occult Blood Urine Nitrate Urine Bilirubin Urine Urobilinogen Ur Leukocyte Esterase Urine RBC Urine WBC Urine Mucus Micro UA Comment Urine Culture Comments 03/23/18 03/23/18 03/23/18 04:56 05:36 05:36 WBC 12.2 H RBC 3.85 L Hgb 11.6 Hct 35.0 MCV 90.8 MCH 30.2 MCHC 33.3 RDW 13.6 Plt Count 326 MPV 7.6 Neut % (Auto) 83.7 H Lymph % (Auto) 10.9 [place] % (Auto) 5.0 Eos % (Auto) 0.1 Baso % (Auto) 0.3 Neut # (Auto) 10.2 H Lymph # (Auto) 1.3 [place] # (Auto) 0.6 Eos # (Auto) 0.0 Baso # (Auto) 0.0 WBC Differential . Differential Comment Auto diff final PT INR APTT Sodium 135 L Potassium 4.2 Chloride 103 Carbon Dioxide 24.4 Anion Gap 8 BUN 14 Creatinine 0.67 Estimated GFR 86 L Random Glucose 104 Calcium 8.3 L Total Bilirubin 0.4 AST 25 ALT 21 Alkaline Phosphatase 86 Troponin I Total Protein 6.5 Albumin 3.0 L Urine Color Yellow Urine Clarity Clear Urine pH 7.0 Ur Specific [place] 1.015 Urine Protein Negative Urine Glucose (UA) Negative Urine Ketones Negative Urine Occult Blood Negative Urine Nitrate Negative Urine Bilirubin Negative Urine Urobilinogen Less than 2 Ur Leukocyte Esterase Trace H Urine RBC 1 Urine WBC 4 Urine Mucus Few H Micro UA Comment Culture not ind Urine Culture Comments Culture not ind 03/23/18 05:36 WBC RBC Hgb Hct MCV MCH MCHC RDW Plt Count MPV Neut % (Auto) Lymph % (Auto) [place] % (Auto) Eos % (Auto) Baso % (Auto) Neut # (Auto) Lymph # (Auto) [place] # (Auto) Eos # (Auto) Baso # (Auto) WBC Differential Differential Comment PT INR APTT Sodium Potassium Chloride Carbon Dioxide Anion Gap BUN Creatinine Estimated GFR Random Glucose Calcium Total Bilirubin AST ALT Alkaline Phosphatase Troponin I Less than 0.02 L Total Protein Albumin Urine Color Urine Clarity Urine pH Ur Specific [place] Urine Protein Urine Glucose (UA) Urine Ketones Urine Occult Blood Urine Nitrate Urine Bilirubin Urine Urobilinogen Ur Leukocyte Esterase Urine RBC Urine WBC Urine Mucus Micro UA Comment Urine Culture Comments - Imaging Impressions Head CT 03/22/18 19:22 CONCLUSION: 1. Negative exam. No change from prior. . Hip X-Ray 03/22/18 19:22 CONCLUSION: No evidence of recent bony injury. Wrist X-Ray 03/22/18 19:22 CONCLUSION: 1. Comminuted fracture of the distal radial metadiaphysis with dorsal displacement of the distal fragment. I suspect that there is a component of intra-articular extension as well. 2. There appears at the pisiform may be dislocated off the ventral carpal row is well Chest X-Ray 03/22/18 19:25 CONCLUSION: No acute cardiopulmonary process. Wrist X-Ray 03/22/18 21:47 CONCLUSION: Partial reduction of the previously seen comminuted distal radial metaphyseal fracture. Distal fragment is offset approximately one half bone thickness dorsally and was completely dorsally displaced previously. Wrist CT 03/22/18 22:28 CONCLUSION: 1. Distal radial fracture with dorsal displacement and angulation of the distal fragment. 2. Fracture at the base of the ulnar styloid. Wrist X-Ray 03/23/18 00:00 CONCLUSION: Status post open rigid internal fixation. 3D Reconstruction 03/23/18 15:41 CONCLUSION: 1. Slightly comminuted, posteriorly displaced and slightly angulated distal radius fracture confirmed on 3-D reconstruction images. Assessment and Plan - Assessment and Plan 77yF POD0 s/p ORIF R distal radius fracture, right carpal tunnel release -Strict elevation right hand above elbow, gentle ROM fingers, -Keep splint in place, NWB R arm -Evaluate overnight, followup 2 weeks
--- NOTE | 2018-03-23 21:05 | P.PNIM ---
Subjective Interval history: Patient just returned from the OR with hand surgery after ORIF of the right wrist. She currently states her pain is controlled. No new issues. Denies chest pain. Physical Exam Vital signs: Vital Signs 03/22/18 22:00 03/22/18 23:00 03/23/18 00:00 Temperature 97.8 F Pulse Rate 84 96 H 85 Respiratory Rate 16 20 18 Blood Pressure 107/60 124/61 Pulse Oximetry 98 92 L 03/23/18 04:00 03/23/18 08:00 03/23/18 12:00 Temperature 98.4 F 97.5 F L 97.8 F Pulse Rate 96 H 85 80 Respiratory Rate 20 14 16 Blood Pressure 137/68 137/64 152/69 H Pulse Oximetry 97 94 L 91 L 03/23/18 19:35 03/23/18 19:45 03/23/18 20:00 Temperature 97.5 F L 97.6 F 97.6 F Pulse Rate 98 H 98 H 97 H Respiratory Rate 14 14 14 Blood Pressure 130/60 139/62 136/63 Pulse Oximetry 94 L 95 96 03/23/18 20:15 03/23/18 20:30 Temperature 97.6 F 97.6 F Pulse Rate 91 H 86 Respiratory Rate 14 14 Blood Pressure 130/61 132/64 Pulse Oximetry 93 L 94 L Intake & Output 03/23/18 03/23/18 03/24/18 06:59 18:59 06:59 Intake Total 1000 / 1000 2600 / 2600 1000 / 1000 Output Total 30 / 30 Balance 1000 / 1000 2570 / 2570 1000 / 1000 Weight 64.41 kg Intake: IV 1000 / 1000 1000 / 1000 1000 / 1000 NS Inj 1,000 ML @ 100 mls/hr IV 1000 / 1000 1000 / 1000 .CONT .Q10H SYLVESTER Rx#:[id number] NS Inj 1,000 ML @ Wide Open IV. 1000 / 1000 SIG BOLUS ONE Rx#:[id number] Oral 0 / 0 Anesthesia Amount 1600 / 1600 Output: Estimated Blood Loss 30 / 30 Other: # Voids 1 1 Date of Last Bowel Movement 03/22/18 03/22/18 Weight On Admission 64.41 kg Narrative: GENERAL: Very pleasant elderly white female in no acute distress. HEENT: PERRLA, EOMI. No scleral icterus or conjunctival pallor. No lid lag or facial droop. CARDIOVASCULAR: Regular rate and rhythm. No obvious murmurs to auscultation. No chest tenderness to palpation. RESPIRATORY: No obvious rhonchi or wheezing. Clear to auscultation. Breath sounds equal bilaterally. GASTROINTESTINAL: Abdomen soft, non-tender, nondistended. BS normal. MUSCULOSKELETAL: Extremities without clubbing, cyanosis, or edema. No obvious deformities. Able to wiggle fingers, decreased ROM due to injury. NEUROLOGICAL: Awake, alert and oriented x4. No focal neurologic deficits. Moving both upper and lower extremities spontaneously. Results - Labs CBC & Chem 7: 03/23/18 05:36 03/23/18 05:36 Laboratory Results - last 24 hr 03/23/18 03/23/18 03/23/18 00:42 04:56 05:36 WBC 12.2 H RBC 3.85 L Hgb 11.6 Hct 35.0 MCV 90.8 MCH 30.2 MCHC 33.3 RDW 13.6 Plt Count 326 MPV 7.6 Neut % (Auto) 83.7 H Lymph % (Auto) 10.9 [place] % (Auto) 5.0 Eos % (Auto) 0.1 Baso % (Auto) 0.3 Neut # (Auto) 10.2 H Lymph # (Auto) 1.3 [place] # (Auto) 0.6 Eos # (Auto) 0.0 Baso # (Auto) 0.0 WBC Differential . Differential Comment Auto diff final Sodium Potassium Chloride Carbon Dioxide Anion Gap BUN Creatinine Estimated GFR Random Glucose Calcium Total Bilirubin AST ALT Alkaline Phosphatase Troponin I Less than 0.02 L Total Protein Albumin Urine Color Yellow Urine Clarity Clear Urine pH 7.0 Ur Specific [place] 1.015 Urine Protein Negative Urine Glucose (UA) Negative Urine Ketones Negative Urine Occult Blood Negative Urine Nitrate Negative Urine Bilirubin Negative Urine Urobilinogen Less than 2 Ur Leukocyte Esterase Trace H Urine RBC 1 Urine WBC 4 Urine Mucus Few H Micro UA Comment Culture not ind Urine Culture Comments Culture not ind 03/23/18 03/23/18 05:36 05:36 WBC RBC Hgb Hct MCV MCH MCHC RDW Plt Count MPV Neut % (Auto) Lymph % (Auto) [place] % (Auto) Eos % (Auto) Baso % (Auto) Neut # (Auto) Lymph # (Auto) [place] # (Auto) Eos # (Auto) Baso # (Auto) WBC Differential Differential Comment Sodium 135 L Potassium 4.2 Chloride 103 Carbon Dioxide 24.4 Anion Gap 8 BUN 14 Creatinine 0.67 Estimated GFR 86 L Random Glucose 104 Calcium 8.3 L Total Bilirubin 0.4 AST 25 ALT 21 Alkaline Phosphatase 86 Troponin I Less than 0.02 L Total Protein 6.5 Albumin 3.0 L Urine Color Urine Clarity Urine pH Ur Specific [place] Urine Protein Urine Glucose (UA) Urine Ketones Urine Occult Blood Urine Nitrate Urine Bilirubin Urine Urobilinogen Ur Leukocyte Esterase Urine RBC Urine WBC Urine Mucus Micro UA Comment Urine Culture Comments - Imaging Impressions Wrist X-Ray 03/22/18 21:47 CONCLUSION: Partial reduction of the previously seen comminuted distal radial metaphyseal fracture. Distal fragment is offset approximately one half bone thickness dorsally and was completely dorsally displaced previously. Wrist CT 03/22/18 22:28 CONCLUSION: 1. Distal radial fracture with dorsal displacement and angulation of the distal fragment. 2. Fracture at the base of the ulnar styloid. Wrist X-Ray 03/23/18 00:00 CONCLUSION: Status post open rigid internal fixation. 3D Reconstruction 03/23/18 15:41 CONCLUSION: 1. Slightly comminuted, posteriorly displaced and slightly angulated distal radius fracture confirmed on 3-D reconstruction images. - Procedures 03/23/18 ORIF R distal radius fracture, right carpal tunnel release Assessment and Plan - Assessment (1) Wrist fracture, right Code(s): S62.101A - Fracture of unspecified carpal bone, right wrist, initial encounter for closed fracture Status: Acute (2) Syncope Code(s): R55 - Syncope and collapse Status: Acute (3) Dehydration Code(s): E86.0 - Dehydration Status: Acute - Plan Right wrist fracture, status post ORIF right distal radius fracture, right carpal tunnel release -Hand surgery consulted and is following -Pain management with IV morphine and p.o. Percocet -Hand surgery recommends keeping the splint in place, nwb to the right arm and strict elevation of the right hand above elbow, gentle range of motion of the fingers -Follow-up with hand surgery in 2 weeks Syncope, likely vasovagal and dehydration GFR 65 -Continue IVF, GFR has improved to 86 -Troponins trended and a negative -Head reviewed and shows no acute findings DVT prophylaxis: SCDs Discussed Condition With: Patient and RN (2) Syncope Qualifiers: Syncope type: vasovagal syncope Qualified Code(s): R55 - Syncope and collapse
[2018-03-23] MEDS ORDERED: oxyCODONE/Acetaminophen 10/325 Tablet PO PRN (22:00)
--- NOTE | 2018-03-24 00:42 | MB ---
cc: Rhea Rosado MD DATE: 03/23/2018 REASON FOR CONSULTATION: Closed displaced intraarticular right distal radius fracture. HISTORY OF PRESENT ILLNESS: Donna Mosqueda is a pleasant 77-year-old right-hand dominant female. She states that she tripped and fell at home under her right wrist and right hip. She has had a prior total hip arthroplasty by Dr. Gomez of [facility]. She reports an old injury as a child over the right wrist, but nothing recent. She states that she did have paresthesias upon presentation to the emergency room, but these had improved since admission. It is unclear why and if the patient lost consciousness. Troponin was negative. Hip x-ray negative for any fracture or dislocation. Emergency room physician performed closed reduction and splinting last night of the distal radius fracture with significant improvement in the alignment of the fracture, but still displacement of the fracture. PAST MEDICAL HISTORY: 1. Hypertension. 2. Hypercholesterolemia. PAST SURGICAL HISTORY: Right total hip arthroplasty. SOCIAL HISTORY: The patient denies tobacco, alcohol or drug use. She is retired. She lives at home with her . PHYSICAL EXAMINATION: The patient is alert and oriented. at the bedside. Sugar-tong splint in place. Swelling over the hand. Sensation intact in the median, ulnar and radial distribution. Less than 2-second capillary refill to the fingers. The patient is able to wiggle the fingers in flexion and extension. IMAGING: X-rays show initially a significantly displaced intraarticular right distal radius fracture. ASSESSMENT AND PLAN: A 77-year-old female with a closed displaced right distal radius fracture who presented with symptoms consistent with carpal tunnel syndrome. Treatment options discussed with the patient including conservative treatment in a splint versus surgical intervention including open reduction and internal fixation with a volar plate versus a dorsal spanning plate. She elected to proceed. Risks were explained, not limited to wound complication, infection, nonunion, malunion, persistent paresthesias, persistent pain, need for additional surgeries, hardware complications and she elected to proceed. Rhea Rosado MD SE[facility]/sv , 11:12 PM , 11:19 PM IVORY
--- NOTE | 2018-03-24 00:53 | MP ---
cc: Rhea Rosado MD DATE OF OPERATION: 03/23/2018 PREOPERATIVE DIAGNOSES: 1. Closed intra-articular displaced right distal radius fracture. 2. Carpal tunnel syndrome. POSTOPERATIVE DIAGNOSES: 1. Closed intra-articular displaced right distal radius fracture. 2. Carpal tunnel syndrome. PROCEDURES: 1. Open reduction internal fixation greater than 3-part, right distal radius fracture. 2. Right carpal tunnel release. SURGEON: Rhea Rosado MD ANESTHESIA: General and local. TOURNIQUET TIME: Approximately 100 minutes at 200 mmHg. IMPLANTS: Synthes standard distal radius plate. INDICATIONS FOR PROCEDURE: Donna Mosqueda is a 77-year-old right-hand dominant female who slipped and fell yesterday on 03/22/2018. She presented to the emergency room with a closed significantly displaced distal radius fracture. She underwent closed reduction in the emergency room by the emergency physician. She elects to proceed with surgical intervention. Risks were explained, which included, but limited to, wound complication, infection, paresthesias, nonunion, malunion, need for additional surgeries, need for hardware removal, pain, and she elected to proceed. DESCRIPTION OF PROCEDURE: The patient was identified in the preoperative holding area and the correct extremity was marked. The patient was taken to the operating room where anesthesia was induced. . The right upper extremity was prepped and draped in normal sterile fashion. Under fluoroscopy, the fracture was reduced and the bone stock was evaluated to decide whether to proceed with volar or dorsal plating. I felt that there was enough bone to proceed with volar plating. Tourniquet was inflated to 200 mmHg for approximately 100 minutes. A standard volar approach to the distal radius was performed. Care was taken to protect the radial artery as well as the median nerve. Flexor carpi radialis tendon was protected and the sheath was incised. Flexor pollicis longus was protected. Pronator quadratus was incised. The fracture was identified. This was reduced using a combination of traction as well as dental picks. I was able to reduce the fracture. I chose a standard Synthes distal radius plate. Initially K-wires were used to hold the plate in place. Then, a combination of nonlocking and locking screws were placed with significant improvement in the alignment of the fracture. This was stable with gentle range of motion of the wrist. The decision was made to perform a carpal tunnel release as the patient did present with the symptoms of carpal tunnel, which did improve with reduction. An incision was made in the palm at the radial border of the ring finger. Palmar fascia was identified and incised. Transverse carpal ligament was identified and incised. There was swelling around the median nerve. Care was taken to protect the ulnar nerve, ulnar artery, palmar arch to completely decompress the antebrachial fascia. Tourniquet was released. Hemostasis was obtained. The patient had less than 2-second capillary refill to the fingers. The carpal tunnel incision was closed with nylon. The distal radius incision was closed with Monocryl and nylon. Approximately 10 mL of 2% lidocaine with no epinephrine was used for local anesthesia. The patient was replaced into a sugar-tong splint and will remain admitted in the hospital for elevation of the hand and continuation of the workup for the syncopal episode. I will likely see her back in the office in approximately 2 weeks. Rhea Rosado MD [facility]/sv , 11:16 PM , 11:24 PM IVORY
[2018-03-24] MEDS: Senna/Docusate Sodium 8.6/50 MG Tablet PO SCH ×2 (08:48→09:50)
[2018-03-24] MEDS: Sod Chloride 0.9% Inj 1,000 ML IV.CONT SCH ×2 (08:49→15:07)
--- NOTE | 2018-03-24 10:18 | P.PN ---
Subjective Interval history: Covering for Dr. Rosado, status post ORIF right distal radius, complains of mild pain denies any numbness complaint with limb elevation Physical Exam Vital signs: Vital Signs 03/23/18 12:00 03/23/18 19:35 03/23/18 19:45 Temperature 97.8 F 97.5 F L 97.6 F Pulse Rate 80 98 H 98 H Respiratory Rate 16 14 14 Blood Pressure 152/69 H 130/60 139/62 Pulse Oximetry 91 L 94 L 95 03/23/18 20:00 03/23/18 20:15 03/23/18 20:30 Temperature 97.4 F L 97.6 F 97.6 F Pulse Rate 83 91 H 86 Respiratory Rate 16 14 14 Blood Pressure 122/64 130/61 132/64 Pulse Oximetry 96 93 L 94 L 03/24/18 00:00 03/24/18 04:00 03/24/18 08:00 Temperature 97.5 F L 97.6 F 97.8 F Pulse Rate 78 79 76 Respiratory Rate 17 17 16 Blood Pressure 147/70 H 134/69 138/65 Pulse Oximetry 95 94 L 95 Intake & Output 03/23/18 03/24/18 03/24/18 18:59 06:59 18:59 Intake Total 2600 / 2600 1120 / 1120 1000 / 1000 Output Total 30 / 30 Balance 2570 / 2570 1120 / 1120 1000 / 1000 Intake: IV 1000 / 1000 1000 / 1000 1000 / 1000 NS Inj 1,000 ML @ 100 mls/hr IV 1000 / 1000 1000 / 1000 1000 / 1000 .CONT .Q10H SYL[facility] Rx#:[id number] Oral 0 / 0 120 / 120 Anesthesia Amount 1600 / 1600 Output: Estimated Blood Loss 30 / 30 Other: # Voids 1 3 Date of Last Bowel Movement 03/22/18 03/22/18 Narrative: examination of the right upper extremity: intact dressing and splint intact distal circulation intact distal sensation able to wiggle finger without any pain Results - Labs CBC & Chem 7: 03/23/18 05:36 03/23/18 05:36 - Imaging Impressions Wrist X-Ray 03/23/18 00:00 CONCLUSION: Status post open rigid internal fixation. 3D Reconstruction 03/23/18 15:41 CONCLUSION: 1. Slightly comminuted, posteriorly displaced and slightly angulated distal radius fracture confirmed on 3-D reconstruction images. - Procedures 03/23/18 ORIF R distal radius fracture, right carpal tunnel release Assessment and Plan - Assessment (1) Wrist fracture, right Code(s): S62.101A - Fracture of unspecified carpal bone, right wrist, initial encounter for closed fracture Status: Acute Plan: cleared for discharge from hand surgery follow up with Dr. Rosado as advised keep the part elevated finger range of motion exercises
--- NOTE | 2018-03-24 13:49 | P.PNIM ---
Subjective Interval history: No overnight events, right hand pain is stable. No shortness of breath, afebrile. Cleared by hand surgery for discharge. Physical Exam Vital signs: Vital Signs 03/23/18 19:35 03/23/18 19:45 03/23/18 20:00 Temperature 97.5 F L 97.6 F 97.4 F L Pulse Rate 98 H 98 H 83 Respiratory Rate 14 14 16 Blood Pressure 130/60 139/62 122/64 Pulse Oximetry 94 L 95 96 03/23/18 20:15 03/23/18 20:30 03/24/18 00:00 Temperature 97.6 F 97.6 F 97.5 F L Pulse Rate 91 H 86 78 Respiratory Rate 14 14 17 Blood Pressure 130/61 132/64 147/70 H Pulse Oximetry 93 L 94 L 95 03/24/18 04:00 03/24/18 08:00 Temperature 97.6 F 97.8 F Pulse Rate 79 76 Respiratory Rate 17 16 Blood Pressure 134/69 138/65 Pulse Oximetry 94 L 95 Intake & Output 03/23/18 03/24/18 03/24/18 18:59 06:59 18:59 Intake Total 2600 / 2600 1120 / 1120 1000 / 1000 Output Total 30 / 30 Balance 2570 / 2570 1120 / 1120 1000 / 1000 Intake: IV 1000 / 1000 1000 / 1000 1000 / 1000 NS Inj 1,000 ML @ 100 mls/hr IV 1000 / 1000 1000 / 1000 1000 / 1000 .CONT .Q10H [facility] Rx#:[id number] Oral 0 / 0 120 / 120 Anesthesia Amount 1600 / 1600 Output: Estimated Blood Loss 30 / 30 Other: # Voids 1 3 Date of Last Bowel Movement 03/22/18 03/22/18 Narrative: GENERAL: Very pleasant elderly white female in no acute distress. CARDIOVASCULAR: Regular rate and rhythm. No obvious murmurs to auscultation. No chest tenderness to palpation. RESPIRATORY: No obvious rhonchi or wheezing. Clear to auscultation. Breath sounds equal bilaterally. GASTROINTESTINAL: Abdomen soft, non-tender, nondistended. BS normal. MUSCULOSKELETAL: Extremities without clubbing, cyanosis, or edema. No obvious deformities. Able to wiggle fingers, Right hand dressings in place. NEUROLOGICAL: Awake, alert and oriented x4. No focal neurologic deficits. Moving both upper and lower extremities spontaneously. Results - Labs CBC & Chem 7: 03/23/18 05:36 03/23/18 05:36 - Imaging Impressions Wrist X-Ray 03/23/18 00:00 CONCLUSION: Status post open rigid internal fixation. 3D Reconstruction 03/23/18 15:41 CONCLUSION: 1. Slightly comminuted, posteriorly displaced and slightly angulated distal radius fracture confirmed on 3-D reconstruction images. - Procedures 03/23/18 ORIF R distal radius fracture, right carpal tunnel release Assessment and Plan - Assessment (1) Wrist fracture, right Code(s): S62.101A - Fracture of unspecified carpal bone, right wrist, initial encounter for closed fracture Status: Acute (2) Syncope Code(s): R55 - Syncope and collapse Status: Acute (3) Dehydration Code(s): E86.0 - Dehydration Status: Acute - Plan Right wrist fracture, status post ORIF right distal radius fracture, right carpal tunnel release -Hand surgery consulted status post surgery, continue pain control with Percocet. -Hand surgery recommends keeping the splint in place, nwb to the right arm and strict elevation of the right hand above elbow, gentle range of motion of the fingers -Follow-up with hand surgery in 2 weeks Syncope, likely vasovagal and dehydration GFR 65 -Troponins trended and a negative -Head reviewed and shows no acute findings DVT prophylaxis: SCDs (2) Syncope Qualifiers: Syncope type: vasovagal syncope Qualified Code(s): R55 - Syncope and collapse
--- NOTE | 2018-03-24 14:28 | P.DS ---
Date of admission: 03/22/18 22:28 Primary care physician: Jason Apodaca MD Brief History from admission: This is a 77-year-old female with a PMH of HTN and Hyperlipidemia who is brought to the ER by EMS after a fall w/ right wrist pain and syncopal event. Pt states she was cooking supper and got her flip flop stuck on the tile floor causing her to fall and land on her right wrist. Severe right wrist pain, 10/10 , non-radiating. Upon EMS arrival, pt had syncopal event after they stood her up. BP 80's systolic at that time. Reports no dizziness prior to fall. No c/ o chest pain. On arrival, BP 139/66, HR 79, O2 sat 99% on RA, Afebrile. CBC unremarkable. INR 1.0. Chemistry essentially unremarkable except for dehydration, GFR 65. Troponin negative. CT Head with no acute findings. CXR w / no acute findings. Hip X-ray negative. Wrist X-ray comminuted fracture of distal radial metadiaphysis, s/p reduction in ER. Dr. Rosado consulted by ER physician, plan is for surgical intervention in am. DS: Diagnosis - Discharge Diagnosis (1) Wrist fracture, right Status: Acute (2) Syncope Status: Acute (3) Dehydration Status: Acute DS: Medications - Discharge Medications Prescriptions: oxycodone-acetaminophen 1 tab PO Q4H PRN #16 tab PRN Reason: PAIN 1 TO 5 DS: Summary Hospital Course: This is a 77-year-old female who had a syncopal attack, fell and found to have a right wrist fracture. Hand surgery was consulted, patient went for right distal radial fracture ORIF and right carpal tunnel release. After few days, patient was cleared for discharge with a splint. For her syncope, workup was negative. Troponins were negative, CT scan of the head was unremarkable. Patient will be discharged to follow-up with hand surgery in 2 weeks. [employer] Prescription Drug Monitoring Database has been queried and verified prior to prescribing the controlled substance. - Time Spent with Patient Total time spent providing and/or coordinating discharge services: Greater than 30 minutes - Quality: VTE Deep Vein Thrombosis/Pulmonary Embolism Present on Admission: No Exam Vital signs: Vital Signs 03/23/18 19:35 03/23/18 19:45 03/23/18 20:00 Temperature 97.5 F L 97.6 F 97.4 F L Pulse Rate 98 H 98 H 83 Respiratory Rate 14 14 16 Blood Pressure 130/60 139/62 122/64 Pulse Oximetry 94 L 95 96 03/23/18 20:15 03/23/18 20:30 03/24/18 00:00 Temperature 97.6 F 97.6 F 97.5 F L Pulse Rate 91 H 86 78 Respiratory Rate 14 14 17 Blood Pressure 130/61 132/64 147/70 H Pulse Oximetry 93 L 94 L 95 03/24/18 04:00 03/24/18 08:00 03/24/18 12:00 Temperature 97.6 F 97.8 F 97 F L Pulse Rate 79 76 84 Respiratory Rate 17 16 16 Blood Pressure 134/69 138/65 122/57 L Pulse Oximetry 94 L 95 95 Intake & Output 03/23/18 03/24/18 03/24/18 18:59 06:59 18:59 Intake Total 2600 / 2600 1120 / 1120 1000 / 1000 Output Total 30 / 30 Balance 2570 / 2570 1120 / 1120 1000 / 1000 Intake: IV 1000 / 1000 1000 / 1000 1000 / 1000 NS Inj 1,000 ML @ 100 mls/hr IV 1000 / 1000 1000 / 1000 1000 / 1000 .CONT .Q10H [facility] Rx#:[id number] Oral 0 / 0 120 / 120 Anesthesia Amount 1600 / 1600 Output: Estimated Blood Loss 30 / 30 Other: # Voids 1 3 Date of Last Bowel Movement 03/22/18 03/22/18 Results Procedures completed during hospitalization: 03/23/18 ORIF R distal radius fracture, right carpal tunnel release - Impressions ITS Impressions Head CT 03/22/18 19:22 CONCLUSION: 1. Negative exam. No change from prior. . Hip X-Ray 03/22/18 19:22 CONCLUSION: No evidence of recent bony injury. Chest X-Ray 03/22/18 19:25 CONCLUSION: No acute cardiopulmonary process. Wrist CT 03/22/18 22:28 CONCLUSION: 1. Distal radial fracture with dorsal displacement and angulation of the distal fragment. 2. Fracture at the base of the ulnar styloid. Wrist X-Ray 03/23/18 00:00 CONCLUSION: Status post open rigid internal fixation. 3D Reconstruction 03/23/18 15:41 CONCLUSION: 1. Slightly comminuted, posteriorly displaced and slightly angulated distal radius fracture confirmed on 3-D reconstruction images. Discharge Plan - Discharge Disposition Patient Disposition: 01 Discharge Home - Discharge Condition Condition: Stable - Discharge Order Discharge Orders: Discharge Order (Routine); Ordered 03/24/18 Ordered By: Aman Dao - Discharge Details Anticipated Discharge Date: 03/24/18 - Physicians Team Primary Care Provider: Jason Apodaca Attending Provider: Aman Dao Other Providers: Javad Farnsworth ; Rhea Rosado MD
--- NOTE | 2018-03-24 15:07 | ECHRPT ---
Indication: CARDIOMYOPATHY CONCLUSIONS The left ventricular systolic function is hyperdynamic with an estimated ejection fraction in the ra nge of 65- 70%. Normal left ventricular size. Wall thickness is normal. No regional wall motion abnormalities are present. Trace mitral valve regurgitation. Aortic valve sclerosis is present. There is trace tricuspid valve regurgitation. The estimated pulmonary arterial pressure is 39.2 mmHg. BP: / HR: Rhythm: Sinus MEASUREMENTS (Male / Female) Normal Values Technical Quality:Fair 2D ECHO LV Diastolic Diameter PLAX 3.3 cm 4.2 - 5.9 / 3.9 - 5.3 cm LV Systolic Diameter PLAX 2.3 cm IVS Diastolic Thickness 1.1 cm 0.6 - 1.0 / 0.6 - 0.9 cm LVPW Diastolic Thickness 1.1 cm 0.6 - 1.0 / 0.6 - 0.9 cm LV Relative Wall Thickness 0.6 LVOT Diameter 1.8 cm LA Systolic Diameter LX 2.9 cm 3.0 - 4.0 / 2.7 - 3.8 cm LV Ejection Fraction MOD 4C 68.5 % LV Ejection Fraction 4C AL 70.2 % M-MODE Aortic Root Diameter MM 2.0 cm LA Systolic Diameter MM 2.9 cm LA Ao Ratio MM 1.5 AV Cusp Separation MM 1.6 cm DOPPLER AV Peak Velocity 147.0 cm/s AV Peak Gradient 8.6 mmHg LVOT Peak Velocity 111.0 cm/s LVOT Peak Gradient 4.9 mmHg AV Area Cont Eq pk 1.9 cm MV Area PHT 3.9 cm Mitral E Point Velocity 85.9 cm/s Mitral A Point Velocity 94.8 cm/s Mitral E to A Ratio 0.9 LV E' Lateral Velocity 10.1 cm/s Mitral E to LV E' Lateral Ratio 8.5 LV E' Septal Velocity 7.9 cm/s Mitral E to LV E' Septal Ratio 10.9 TR Peak Velocity 270.0 cm/s TR Peak Gradient 29.2 mmHg Right Atrial Pressure 10.0 mmHg Pulmonary Artery Systolic Pressu 39.2 mmHg Right Ventricular Systolic Press 39.2 mmHg PV Peak Velocity 84.2 cm/s PV Peak Gradient 2.8 mmHg FINDINGS LEFT VENTRICLE The left ventricular systolic function is hyperdynamic with an estimated ejection fraction in the ra nge of 65- 70%. Normal left ventricular size. Wall thickness is normal. No regional wall motion abnormalities are present. RIGHT VENTRICLE Normal right ventricular size and systolic function. LEFT ATRIUM The left atrial size is normal. RIGHT ATRIUM The right atrial size is normal. ATRIAL SEPTUM Normal atrial septal thickness without atrial level shunting by limited color doppler interrogation. AORTA The aortic root and proximal ascending aorta are normal in size on limited imaging. MITRAL VALVE Mild mitral annular calcification. Trace mitral valve regurgitation. AORTIC VALVE Trileaflet aortic valve. Aortic valve sclerosis is present. TRICUSPID VALVE Structurally normal tricuspid valve. There is trace tricuspid valve regurgitation. The estimated pulmonary arterial pressure is 39.2 mmHg. PULMONARY VALVE No pulmonary valve regurgitation or stenosis. VESSELS The inferior vena cava is normal in size. PERICARDIUM No pericardial effusion. Abdirashid Thomas MD (Electronically Signed) Final Date:24 March 2018 15:06
== END 2018-03-24 15:51 | disposition home or self-care (01) ==
LOC: NEPC 18:56 → NEDA 22:28 → N06 23:30
PROVIDERS: ADMIT Hospitalist; ATTEND Hospitalist